=== PATIENT | male | born 1965 | race Caucasian/White ===

== ENCOUNTER 2017-04-15 18:38 | Emergency (ER) | payer BC ==
[~2017-04-15] VITALS: Ht 172.7 cm; Wt 74.8 kg
[2017-04-15] MEDS ORDERED: PRAV1TAB39 PO (18:45)
[2017-04-15] MEDS ORDERED: PREV30CA11 PO (18:45)
[2017-04-15 20:08] VITALS: BP 136/87
--- NOTE | 2017-04-16 07:48 | REP ---
Clinical: Trauma. Technique: AP, lateral, bilateral oblique views of the right hand. Findings: There is a very minimally displaced oblique fracture involving the fifth metacarpal bone extending from the diaphysis distally to the articular surface at the metacarpal phalangeal joint. Overlying soft tissue swelling. No other fracture dislocation. Impression: Oblique fracture involving the mid to distal fifth metacarpal bone extending to the articular surface at the MCP joint. Signed by Ángel Vega MD 04/16/2017 07:39 A
== END 2017-04-15 20:27 | disposition home or self-care (01) ==
LOC: M ED 20:17
DX: S62.306A Unspecified fracture of fifth metacarpal bone, right hand, initial encounter for closed fracture (principal); W10.9XXA Fall (on) (from) unspecified stairs and steps, initial encounter; Y92.019 Unspecified place in single-family (private) house as the place of occurrence of the external cause; Y93.01 Activity, walking, marching and hiking; Y99.8 Other external cause status; E78.00 Pure hypercholesterolemia, unspecified; Z79.899 Other long term (current) drug therapy